=== PATIENT | female | born 2000 | race Caucasian/White ===

== ENCOUNTER 2024-10-22 20:50 | Emergency (ER) | payer OTHER, SELFPAY ==
[2024-10-22 20:55] VITALS: BP 122/99; PULSE 112; TEMP 36.7; O2SAT 98; BMI 26.5
[2024-10-22 21:02] VITALS: PULSE 113
--- NOTE | 2024-10-22 21:06 | ECG_ITS ---
[facility] Test Date: 2024-10-22 Pat Name: JOVI RABAGO Department: Room: - Gender: Female [employer] Center Operations Manager: : 2000 Requested By: [id number] Order Number: [id number] Reading MD: MERCY FARRELL Measurements Intervals [place] Rate: 86 P: 35 OR: 116 QRS: 78 QRSD: 70 T: 37 QT: 332 QTc: 375 Interpretive Statements 1100 Sinus rhythm 1102 Sinus arrhythmia 2210 Short OR interval Non specific ST T wave changes 9150 abnormal ECG Electronically Signed On 10-26-2024 16:39:31 EDT by MERCY FARRELL
--- NOTE | 2024-10-22 21:06 | XR_ITS ---
The [place] [id number] Patient Name: JOVI RABAGO MRN: [id number] date: 2000 Sex: F Assigned Patient Location: ER Current Patient Location: ER Accession/Order Number: [id number] Exam Date: 10/22/2024 21:20 Report Date: 10/22/2024 22:09 At the request of: JESSICA REAVES MD Procedure: XR chest 1V PA CHEST: CLINICAL HISTORY: Chest pain COMPARISON: None The heart is normal in size. The lungs are clear. The pulmonary vasculature is normal. Mediastinum and hilar regions are unremarkable. No pleural effusions are seen. Visualized bones are intact. XR/XR chest 1V IMPRESSION: NEGATIVE CHEST. Impression dictated by: Wilber Borrero M.D. 10/22/2024 10:09 PM Dictation Location: [place] [address] Electronically authenticated by: [id number] Y Date: 10/22/2024 22:09
--- NOTE | 2024-10-22 21:08 | XR_ITS ---
The [place] [id number] Patient Name: JOVI RABAGO MRN: [id number] date: 2000 Sex: F Assigned Patient Location: ER Current Patient Location: ER Accession/Order Number: [id number] Exam Date: 10/22/2024 21:20 Report Date: 10/22/2024 22:08 At the request of: JESSICA REAVES MD Procedure: XR shoulder LT min 2V 3 views left shoulder INDICATION: Atraumatic pain COMPARISON: None FINDINGS: No fracture or dislocation identified. No significant degenerative changes. Soft tissues unremarkable. XR/XR shoulder LT min 2V IMPRESSION: Unremarkable x-ray left shoulder. Impression dictated by: Wilber Borrero M.D. 10/22/2024 10:08 PM Dictation Location: [place] [address] Electronically authenticated by: [id number] Y Date: 10/22/2024 22:08
--- NOTE | 2024-10-22 21:08 | ED.GENADUL1 ---
HPI HPI - General Adult General Chief complaint: Extremity Problem, Nontraumatic Stated complaint: Upper Pain Time Seen by Provider: 10/22/24 21:00 Source: patient Mode of arrival: walk-in Limitations: no limitations History of Present Illness HPI narrative: 24-year-old female presents for pain at the superior aspect of her left shoulder. It is been there since about 11:00 this morning, 10 hours ago. There was no trauma. Movement does not seem to make it worse. She has not had a fever cough and sometimes she states the pain is sharp and it takes her breath away. Related Data Home Medications ?Medication ?Instructions ?Recorded ?Confirmed No Known Home Medications 10/22/24 10/22/24 Allergies Allergy/AdvReac Type Severity Reaction Status Date / Time Sulfa (Sulfonamide AdvReac Intermediate Nausea Verified 10/22/24 20:55 Antibiotics) Opioid HPI Opioid Management Most Recent Opioid Data: Last Pain Scale 8 10/22/24, 21:27 Last MAR Pain Assessment 10/22/24, 21:27 Review of Systems ROS Narrative A ten point review of systems is negative except as noted above. PFSH PFSH Social History Little interest or pleasure in doing things: not at all Feeling down, depressed, or hopeless: not at all Exam Narrative Exam Narrative: Nurses note and vital signs reviewed and patient is not hypoxic. General: The patient appears well and in no apparent distress. Patient is resting comfortably on cart. Skin: Warm, dry, no pallor noted. There is no rash noted. Head: Normocephalic, atraumatic Eye: Normal conjunctiva, no drainage Ears, Nose, Mouth, and Throat: oral mucosa is moist. Nares patent. Cardiovascular: Regular Rate and Rhythm, mildly tachycardic Respiratory: Patient is in no distress, no accessory muscle use, lungs are clear to auscultation, no wheezing, rales or rhonchi Back: non-tender, no CVA tenderness bilaterally to percussion. GI: Soft and nontender Musculoskeletal: The left shoulder has no bruise rash or swelling and has full range of motion. Radial pulse 2+. Neurological: A&O, normal speech Psychiatric: Cooperative Constitutional Vital Signs, click to edit/add: Last Vital Signs Temp 98.0 F 10/22/24 20:55 Pulse 77 10/22/24 23:22 Resp 22 H 10/22/24 23:22 BP 108/80 10/22/24 23:22 Pulse Ox 96 10/22/24 23:22 O2 Del Method Room Air 10/22/24 23:22 Course Vital Signs Vital signs: Vital Signs Temperature 98.0 F 10/22/24 20:55 Pulse Rate 112 H 10/22/24 20:55 Respiratory Rate 18 10/22/24 20:55 Blood Pressure 122/99 H 10/22/24 20:55 Pulse Oximetry 98 10/22/24 20:55 Oxygen Delivery Method Room Air 10/22/24 20:55 Temperature 98.0 F 10/22/24 20:55 Pulse Rate 77 10/22/24 23:22 Respiratory Rate 22 H 10/22/24 23:22 Blood Pressure 108/80 10/22/24 23:22 Pulse Oximetry 96 10/22/24 23:22 Oxygen Delivery Method Room Air 10/22/24 23:22 Medical Decision Making MDM Narrative Medical decision making narrative: The patient's extensive workup is negative. CTA shows no PE. This was performed because D-dimer was mildly elevated. She was given IV Toradol and states she is feeling improved so she is discharged home. She was also concerned about the possibility of a UTI but there is no evidence of UTI. Treatment diagnosis and follow-up were discussed with the patient. Differential Diagnosis Differential Diagnosis: Pneumothorax, PE, muscle strain Lab Data Lab results reviewed: Yes I reviewed the patient's lab results Labs: Lab Results 10/22/24 10/22/24 Range/Units 21:10 23:28 WBC 11.5 H (4.0-11.0) 10^3/uL RBC 4.09 L (4.20-5.40) 10^6/uL Hgb 13.1 (12.0-16.0) g/dL Hct 37.5 (36.0-48.0) % MCV 91.7 (81.0-99.0) fL MCH 32.0 (26.7-34.0) pg MCHC 34.9 (29.9-35.2) g/dL RDW 11.9 (11.0-15.0) % Plt Count 246 (150-450) 10^3/uL MPV 9.5 (9.5-13.5) fL Neut % (Auto) 69.8 (43.0-75.0) % Lymph % (Auto) 22.6 (20.5-60.0) % [place] % (Auto) 6.6 (1.7-12.0) % Eos % (Auto) 0.5 L (0.9-7.0) % Baso % (Auto) 0.3 (0.2-2.0) % Neut # (Auto) 8.0 H (1.4-6.5) 10^3/uL Lymph # (Auto) 2.6 (1.2-3.8) 10^3/uL [place] # (Auto) 0.8 (0.3-0.8) 10^3/uL Eos # (Auto) 0.1 (0.0-0.7) 10^3/uL Baso # (Auto) 0.0 (0.0-0.1) 10^3/uL Abs Immat Gran (auto) 0.02 (0.00-0.03) 10^3/uL Imm/Tot Granulo (auto) 0.2 (0.0-0.5) % D-Dimer 0.60 H (<=0.59) mg/L FEU Sodium 140 (136-145) mmol/L Potassium 3.4 L (3.5-5.1) mmol/L Chloride 105 (98-107) mmol/L Carbon Dioxide 26.9 (21.0-32.0) mmol/L Anion Gap 11.5 BUN 9.0 (7.0-18.0) mg/dL Creatinine 0.75 (0.55-1.02) mg/dL Est GFR ( Amer) >60 (>=60 mL/min/1.73m^2) Est GFR (Non-Af Amer) >60 (>=60 mL/min/1.73m^2) BUN/Creatinine Ratio 12.0 Glucose 119 H (74-106) mg/dL Calcium 9.0 (8.5-10.1) mg/dL Urine Color Yellow (YELLOW) Urine Clarity Clear (CLEAR) Urine pH 7.0 (5.0-9.0) Ur Specific [place] 1.010 (1.005-1.025) Urine Protein Negative (NEG/TRACE) mg/dL Urine Glucose (UA) Negative (NEGATIVE) mg/dL Urine Ketones Negative (NEGATIVE) mg/dL Urine Occult Blood Moderate A (NEGATIVE) Urine Nitrite Negative (NEGATIVE) Urine Bilirubin Negative (NEGATIVE) Urine Urobilinogen 1.0 (0.2-1.0) EU/dL Ur Leukocyte Esterase Negative (NEGATIVE) Urine RBC None seen (0-2) #/HPF Urine WBC 0-2 A (NONE SEEN) #/HPF Ur Squamous Epith Cells Rare (NONE/RARE) #/LPF Urine Crystals None seen (None Seen) #/HPF Urine Bacteria Trace A (NONE SEEN) #/HPF Urine Casts None seen (NONE SEEN) #/LPF Urine Mucus None seen (NONE SEEN) Ur Culture Indicated? No Urine HCG, Qual Negative (NEGATIVE) Imaging Data Chest x-ray: Radiologist's impression: ITS Impressions Chest X-Ray 10/22/24 21:06 IMPRESSION: NEGATIVE CHEST. Impression dictated by: Wilber Borrero M.D. 10/22/2024 10:09 PM Dictation Location: [employer] Electronically authenticated by: [id number] Y Date: 10/22/2024 22:09 Shoulder X-Ray 10/22/24 21:08 IMPRESSION: Unremarkable x-ray left shoulder. Impression dictated by: Wilber Borrero M.D. 10/22/2024 10:08 PM Dictation Location: [place] Electronically authenticated by: [id number] Y Date: 10/22/2024 22:08 Chest CTA 10/22/24 21:42 IMPRESSION: No CT evidence of pulmonary embolism or acute cardiopulmonary process. Impression dictated by: Wilber Borrero M.D. 10/22/2024 10:50 PM Dictation Location: [place] Electronically authenticated by: [id number] Y Date: 10/22/2024 22:50 Discharge Plan Discharge Chief Complaint: Extremity Problem, Nontraumatic Clinical Impression: Acute shoulder pain Patient Disposition: Home, Self-Care Time of Disposition Decision: 00:00 Condition: Good Mode of Transportation: Private Vehicle Prescriptions / Home Meds: No Action No Known Home Medications Print Language: Latvian Instructions: Shoulder Pain (ED) Referrals: Christi Loving MD [Primary Care Provider, Family Practice] - 1 week
[2024-10-22 21:26] LABS: Hematocrit 37.5 % (36.0-48.0); Hemoglobin 13.1 g/dL (12.0-16.0); Immature Granulocytes Abs Auto 0.02 10^3/uL (0.00-0.03); Immature Granulocytes Pct Auto 0.2 % (0.0-0.5); Lymphocytes Absolute Auto 2.6 10^3/uL (1.2-3.8); Mean Corpuscular HGB Conc 34.9 g/dL (29.9-35.2); Mean Corpuscular Hemoglobin 32.0 pg (26.7-34.0); Mean Corpuscular Volume 91.7 fL (81.0-99.0); Platelet Count 246 10^3/uL (150-450); Red Blood Count 4.09 10^6/uL (4.20-5.40); White Blood Count 11.5 10^3/uL (4.0-11.0)
[2024-10-22] MEDS: KETOROLAC TROMETHAMINE 30 MG/ML VIAL IVP (21:27)
[2024-10-22 21:35] LABS: Anion Gap 11.5; Blood Urea Nitrogen 9.0 mg/dL (7.0-18.0); Calcium 9.0 mg/dL (8.5-10.1); Carbon Dioxide 26.9 mmol/L (21.0-32.0); Chloride 105 mmol/L (98-107); Estimated GFR (African America >60 (>=60 mL/min/1.73m^2); Estimated GFR (Non-African Ame >60 (>=60 mL/min/1.73m^2); Glucose 119 mg/dL (74-106); Potassium 3.4 mmol/L (3.5-5.1); Sodium 140 mmol/L (136-145)
--- NOTE | 2024-10-22 21:42 | CT_ITS ---
The [address] [address] Patient Name: JOVI RABAGO MRN: [id number] date: 2000 Sex: F Assigned Patient Location: ER Current Patient Location: Accession/Order Number: [id number] Exam Date: 10/22/2024 22:00 Report Date: 10/22/2024 22:50 At the request of: JESSICA REAVES MD Procedure: CT angio chest CT ANGIOGRAM OF THE CHEST, PULMONARY EMBOLISM PROTOCOL: CLINICAL INFORMATION: Pain, elevated d-dimer TECHNIQUE: Following intravenous injection of contrast CT scans of the chest were obtained using pulmonary embolism protocol. Coronal and sagittal reconstructed images, as well as volume rendered CT pulmonary angiographic images were also submitted.The CT exam was performed using one or more of the following dose reduction techniques: Automated exposure control, adjustment of the MA and/or Kv according to patient size, or use of the iterative reconstruction technique. FINDINGS: Pulmonary Vasculature: Contrast bolus is adequate for evaluation of pulmonary embolism. Pulmonary trunk appears nondilated. No filling defects are identified to suggest pulmonary embolism. Mediastinum : Thoracic aorta is normal in caliber. No pericardial effusion. No lymphadenopathy. The esophagus is grossly unremarkable. Lungs: . No focal consolidation, pneumothorax or pleural effusion. Upper abdomen: No acute findings Soft tissue/bones: Soft tissues surrounding the chest wall demonstrate no acute findings. Unremarkable osseous structures CT/CT angio chest IMPRESSION: No CT evidence of pulmonary embolism or acute cardiopulmonary process. Impression dictated by: Wilber Borrero M.D. 10/22/2024 10:50 PM Dictation Location: [facility] Electronically authenticated by: [id number] Y Date: 10/22/2024 22:50
[2024-10-22 23:22] VITALS: BP 108/80; PULSE 77; O2SAT 96
[2024-10-22 23:43] LABS: Glucose Urine UA NEGATIVE (NEGATIVE); HCG Qualitative Urine* NEGATIVE (NEGATIVE)
[2024-10-22 23:49] LABS: Cast Seen? NONE SEEN #/LPF (NONE SEEN); Crystals Seen? None Seen #/HPF (None Seen); Urine Culture Indicated NO
[2024-10-23 00:43] VITALS: BP 117/79; PULSE 72; O2SAT 100
== END 2024-10-23 00:46 | disposition home or self-care (01) ==
PROVIDERS: Emergency Provider Emergency Medicine; PCP Family Medicine
DX: M25.512 Pain in left shoulder (principal); R79.89 Other specified abnormal findings of blood chemistry
CPT/HCPCS: 36415; 71045; 71275; 73030; 80048; 81001; 84703; 85025; 85378; 93005; 96374; 99285; J1885; Q9967